=== PATIENT | male | born 1990 | race American Indian/Alaskan Native ===

== ENCOUNTER 2020-09-22 21:02 | Emergency (ER) | payer SELFPAY ==
[2020-09-22 22:51] LABS: Basophils # (Auto) 0.1 K/mm3 (0.0-0.1); Basophils % (Auto) 0.5 % (0.0-1.8); Eosinophils # (Auto) 0.6 K/mm3 (0.0-0.4); Hematocrit 36.6 % (35.5-45.6); Lymphocytes # (Auto) 2.2 K/mm3 (1.2-5.4); Lymphocytes % (Auto) 20.5 % (13.4-35.0); Mean Corpuscular HGB Conc 35 % (32-34); Mean Corpuscular Volume 91 fl (84-94); Monocytes # (Auto) 0.9 K/mm3 (0.0-0.8); Monocytes % (Auto) 7.8 % (0.0-7.3); Platelet Count 272 K/mm3 (140-440); Red Blood Count 4.02 M/mm3 (3.65-5.03); Red Cell Distribution Width 14.5 % (13.2-15.2)
[2020-09-22 23:10] LABS: BUN/Creatinine Ratio 10; Blood Urea Nitrogen 7 mg/dL (9-20); Calcium 9.4 mg/dL (8.4-10.2); Hemolysis Index 6
[2020-09-22 23:10] LABS: Bilirubin,Urine NEG (Negative); Blood,Urine NEG (Negative); Color,Urine Yellow (Yellow); Mucus,Urine FEW /HPF; Protein,Urine <15 mg/dL mg/dL (Negative); RBC,Urine < 1.0 /HPF (0.0-6.0); Urobilinogen,Urine < 2.0 mg/dL (<2.0)
[2020-09-22 23:18] LABS: Amphetamine Screen,Urine PRESUMPTIVE NEGATIVE; Benzodiazepines Screen,Urine PRESUMPTIVE NEGATIVE; Cannabinoid Screen,Urine PRESUMPTIVE POSITIVE; Cocaine Screen,Urine PRESUMPTIVE NEGATIVE; Methadone Screen,Urine PRESUMPTIVE NEGATIVE; Opiate Screen,Urine PRESUMPTIVE NEGATIVE
--- NOTE | 2020-09-23 00:36 | Emergency Department Report ---
ED Psych HPI - General Chief Complaint: Psych Stated Complaint: SI Time Seen by Provider: 09/23/20 00:27 Source: patient Mode of arrival: Ambulatory - History of Present Illness Initial Comments: Patient is here with depression, suicidal ideations, anxiety. Symptoms have been present for the past month and has been progressively worsening for the past 3 days. Patient states he has been in and out of the hospital in [place] for a right leg cellulitis, which turned into an abscess, for which he had surgery 3 days ago. After the surgery, his depression got worse, and he was sent from [facility] to [place] because he was told that [facility] had a contract with [place] to evaluate psych patient. When he arrived at [place] he was not evaluated because of his lack of insurance, he was sent to [facility] ED for evaluation instead. Patient states he still suicidal, although he does not have any specific plan except getting his surgical leg infected again. - Related Data Home Medications Medication Instructions Recorded Confirmed Last Taken DOXYCYCLINE Hyclate [Vibramycin] 100 mg PO Q12HR 09/23/20 09/23/20 Unknown Folic Acid 1 mg PO QDAY 09/23/20 09/23/20 Unknown OLANzapine ZYDIS [ZyPREXA Zydis] 5 mg PO DAILY 09/23/20 09/23/20 Unknown Prazosin [Minipress] 1 mg PO QHS 09/23/20 09/23/20 Unknown hydrOXYzine HCL [Atarax] 25 mg PO Q6HR 09/23/20 09/23/20 Unknown Allergies Allergy/AdvReac Type Severity Reaction Status Date / Time No Known Allergies Allergy Unverified 09/22/20 21:50 ED Review of Systems ROS: Stated complaint: SI Other details as noted in HPI Constitutional: denies: chills, fever Eyes: denies: eye pain, eye discharge, vision change ENT: denies: ear pain, throat pain Respiratory: denies: cough, shortness of breath, wheezing Cardiovascular: denies: chest pain, palpitations Endocrine: no symptoms reported Gastrointestinal: denies: abdominal pain, nausea, diarrhea Genitourinary: denies: urgency, dysuria Musculoskeletal: denies: back pain, joint swelling, arthralgia Skin: denies: rash, lesions Neurological: denies: headache, weakness, paresthesias Psychiatric: anxiety, depression, suicidal thoughts Hematological/Lymphatic: denies: easy bleeding, easy bruising ED Past Medical Hx - Past Medical History Previous Medical History?: Yes Hx Psychiatric Treatment: Yes (PTSD, Anxiety, Depression) - Surgical History Past Surgical History?: Yes Hx Cholecystectomy: Yes Additional Surgical History: Right leg surgery - Social History Smoking Status: Current Every Day Smoker Substance Use Type: None - Medications Home Medications: Home Medications Medication Instructions Recorded Confirmed Last Taken Type DOXYCYCLINE Hyclate [Vibramycin] 100 mg PO Q12HR 09/23/20 09/23/20 Unknown History Folic Acid 1 mg PO QDAY 09/23/20 09/23/20 Unknown History OLANzapine ZYDIS [ZyPREXA Zydis] 5 mg PO DAILY 09/23/20 09/23/20 Unknown History Prazosin [Minipress] 1 mg PO QHS 09/23/20 09/23/20 Unknown History hydrOXYzine HCL [Atarax] 25 mg PO Q6HR 09/23/20 09/23/20 Unknown History ED Physical Exam - General Limitations: No Limitations General appearance: alert, in no apparent distress - Head Head exam: Present: atraumatic, normocephalic - Eye Eye exam: Present: normal appearance - ENT ENT exam: Present: mucous membranes moist - Neck Neck exam: Present: normal inspection - Respiratory Respiratory exam: Present: normal lung sounds bilaterally. Absent: respiratory distress - Cardiovascular Cardiovascular Exam: Present: regular rate, normal rhythm. Absent: systolic murmur, diastolic murmur, rubs, gallop - GI/Abdominal GI/Abdominal exam: Present: soft, normal bowel sounds - Rectal Rectal exam: Present: deferred - Extremities Exam Extremities exam: Present: normal inspection - Back Exam Back exam: Present: normal inspection - Neurological Exam Neurological exam: Present: alert, oriented X3 - Psychiatric Psychiatric exam: Present: depressed, flat affect, suicidal ideation - Skin Skin exam: Present: warm, dry, intact, normal color. Absent: rash ED Course Vital Signs 09/22/20 21:56 Temperature 97.9 F Pulse Rate 91 H Respiratory 18 Rate Blood Pressure 148/97 [Left] O2 Sat by Pulse 99 Oximetry ED Medical Decision Making - Lab Data Result diagrams: 09/22/20 22:30 09/22/20 22:30 - Medical Decision Making 30-year-old white male with depression history, now suicidal, recommend inpatient treatment, he is medically clear for inpatient psychiatric treatment. Awaiting on psych placement. Critical care attestation.: If time is entered above; I have spent that time in minutes in the direct care of this critically ill patient, excluding procedure time. ED Disposition Clinical Impression: Suicidal ideation Major depression, recurrent Qualifiers: Active/Remission status: currently active Major depression episode severity: severe Psychotic features: without psychotic features Qualified Code(s): F33.2 - Major depressive disorder, recurrent severe without psychotic features Disposition: [id number]/[id number] PSY HOSP/PSY UNIT Is pt being admited?: No Does the pt Need Aspirin: No Condition: Stable Referrals: PRIMARY CARE, [Primary Care Provider] - 3-5 Days
[2020-09-23] MEDS ORDERED: ACETAMINOPHEN 500 MG TAB PO ONE (01:02)
[2020-09-23] MEDS ORDERED: KETOROLAC 30 MG/1 ML INJ IM ONE (09:36)
[2020-09-23] MEDS ORDERED: ACETAMINOPHEN 325 MG TAB ONE (10:17)
[2020-09-23] MEDS ORDERED: ACETAMINOPHEN 325 MG TAB PO ONE (10:36)
[2020-09-23 11:06] VITALS: BP 134/98
== END 2020-09-23 14:00 | disposition home or self-care (01) ==
LOC: ED 21:02
DX: F33.2 Major depressive disorder, recurrent severe without psychotic features (principal); F43.11 Post-traumatic stress disorder, acute; F41.9 Anxiety disorder, unspecified; F17.200 Nicotine dependence, unspecified, uncomplicated; Z90.49 Acquired absence of other specified parts of digestive tract; Z98.890 Other specified postprocedural states; Z79.899 Other long term (current) drug therapy
CPT/HCPCS: 36415; 80048; 80307; 81001; 85025; 99283; J1885; 80320; G0480